=== PATIENT | male | born 2000 | race Caucasian/White ===

== ENCOUNTER 2020-01-16 10:32 | Emergency (ER) | payer BC ==
[~2020-01-16] VITALS: Ht 182.9 cm; Wt 70.5 kg
[2020-01-16 10:35] VITALS: BP 124/79; TEMP 98.2
[2020-01-16 11:25] VITALS: PULSE 74
== END 2020-01-16 11:25 | disposition home or self-care (01) ==
LOC: COL.ER 10:32
DX: S81.811A Laceration without foreign body, right lower leg, initial encounter (principal); W25.XXXA Contact with sharp glass, initial encounter